=== PATIENT | female | born 1955 | race Caucasian/White ===

== ENCOUNTER → 2016-06-05 | Outpatient (CLI) | payer OTHER ==
[2016-06-05 08:49] LABS: CHOLESTEROL 188.45 mg/dL (0-200); Direct HDL 45 mg/dL (>40); TRIGLYCERIDES 117 mg/dL (<150)
[2016-06-05 09:01] LABS: DIRECT LDL 108 mg/dL (<100)
== END ==
LOC: OD 07:06
PROVIDERS: ATTEND Internal Medicine
DX: E55.9 Vitamin D deficiency, unspecified (principal); E78.5 Hyperlipidemia, unspecified
CPT/HCPCS: 36415; 80061; 82306

== ENCOUNTER → 2017-05-27 | Outpatient (CLI) | payer OTHER ==
[2017-05-27 08:31] LABS: ALANINE AMINOTRANSFERASE 30 U/L (9-52); ASPARTATE AMINO TRANSFERASE 19 U/L (14-36); CHOLESTEROL 208.86 mg/dL (0-200); TRIGLYCERIDES 94 mg/dL (<150)
[2017-05-27 08:42] LABS: DIRECT LDL 133 mg/dL (<100)
== END ==
LOC: OD 07:15
PROVIDERS: ATTEND Family Medicine Geriatric Medicine
DX: E78.5 Hyperlipidemia, unspecified (principal); Z79.899 Other long term (current) drug therapy
CPT/HCPCS: 36415; 80061; 84450; 84460

== ENCOUNTER → 2017-10-24 | Outpatient (CLI) | payer OTHER ==
[2017-10-24 08:55] LABS: ALANINE AMINOTRANSFERASE 28 U/L (9-52); ANION GAP 9 (5-19); ASPARTATE AMINO TRANSFERASE 21 U/L (14-36); BLOOD UREA NITROGEN 12 mg/dL (7-20); CALCIUM 9.8 mg/dL (8.4-10.2); CARBON DIOXIDE 30 mmol/L (22-30); CHLORIDE 106 mmol/L (98-107); CHOLESTEROL 194.16 mg/dL (0-200); GLUCOSE 96 mg/dL (75-110); POTASSIUM 4.9 mmol/L (3.6-5.0); SODIUM 145.4 mmol/L (137-145); TRIGLYCERIDES 67 mg/dL (<150)
[2017-10-24 09:06] LABS: DIRECT LDL 110 mg/dL (<100)
== END ==
LOC: OD 07:25
PROVIDERS: ATTEND Family Medicine Geriatric Medicine
DX: E78.5 Hyperlipidemia, unspecified (principal); Z79.899 Other long term (current) drug therapy
CPT/HCPCS: 36415; 80048; 80061; 84450; 84460

== ENCOUNTER → 2020-03-03 | Outpatient (CLI) | payer MEDICARE, OTHER ==
[2020-03-03 10:09] LABS: ALBUMIN 3.9 g/dL (3.5-5.0); ALKALINE PHOSPHATASE 61 U/L (38-126); ANION GAP 8 (5-19); ASPARTATE AMINO TRANSFERASE 22 U/L (14-36); BILIRUBIN,TOTAL 0.3 mg/dL (0.2-1.3); BLOOD UREA NITROGEN 11 mg/dL (7-20); CARBON DIOXIDE 30 mmol/L (22-30); CHLORIDE 105 mmol/L (98-107); CHOLESTEROL 177.83 mg/dL (0-200); GLUCOSE 103 mg/dL (75-110); POTASSIUM 4.4 mmol/L (3.6-5.0); TOTAL PROTEIN 6.7 g/dL (6.3-8.2); TRIGLYCERIDES 58 mg/dL (<150)
[2020-03-03 10:12] LABS: CALCIUM 9.9 mg/dL (8.4-10.2)
[2020-03-03 10:20] LABS: DIRECT LDL 112 mg/dL (<100)
== END ==
LOC: OD 07:37
PROVIDERS: ATTEND Family Medicine
DX: E78.5 Hyperlipidemia, unspecified (principal); E55.9 Vitamin D deficiency, unspecified
CPT/HCPCS: 36415; 80053; 80061; 82306